=== PATIENT | female | born 1950 | race Caucasian/White ===

== ENCOUNTER 2017-01-09 10:43 | Observation (INO) | payer BC, MEDICARE ==
[2017-01-09] MEDS ORDERED: Ondansetron ODT TAB* 4 MG PO ONE (10:55)
[2017-01-09] MEDS ORDERED: NS 0.9% 1000 ML* 1,000 ML IV ONE (10:55)
[2017-01-09] MEDS ORDERED: Ondansetron INJ* 2 MG/ML VIAL IV ONE (11:03)
[2017-01-09 11:05] LABS: Hematocrit 34 % (35-47); Hemoglobin 11.4 g/dl (12.0-16.0); Mean Corpuscular HGB Conc 34 g/dl (31-36); Mean Corpuscular Hemoglobin 32 pg (27-31); Mean Corpuscular Volume 96 fL (80-97); Mean Platelet Volume 8 um3 (7.4-10.4); Red Blood Count 3.55 10^6/ul (4.0-5.4); Red Cell Distribution Width 14 % (10.5-15); White Blood Count 8.4 10^3/ul (3.5-10.8)
[2017-01-09 11:18] LABS: Potassium 3.5 mmol/L (3.5-5.0)
[2017-01-09 11:53] LABS: TSH (Thyroid Stimulating Horm) 2.17 mcIU/mL (0.34-5.60)
[2017-01-09 12:02] LABS: Albumin 3.6 g/dL (3.2-5.2); BUN/Creatinine Ratio 15.8 (8-20); EGFR African American 75.2 (>60); EGFR Non-African American 58.5 (>60); Total Bilirubin 0.6 mg/dL (0.2-1.0); Total Protein 6.6 g/dL (6.4-8.9)
--- NOTE | 2017-01-09 12:12 | RAD ---
HISTORY: Syncope COMPARISONS: None VIEWS:1: Single frontal portable view of the chest at 11:25 AM FINDINGS: LINES AND TUBES: None. CARDIOMEDIASTINAL SILHOUETTE: The cardiomediastinal silhouette is normal for portable technique. PLEURA: The costophrenic angles are sharp. No pleural abnormalities are noted. LUNG PARENCHYMA: The lungs are clear. ABDOMEN: The upper abdomen is clear. There is no subphrenic gas. BONES AND SOFT TISSUES: There is a scoliotic curvature of the spine IMPRESSION: NO ACTIVE CARDIOPULMONARY DISEASE.
[2017-01-09 13:52] LABS: Urine Bilirubin Negative (Negative); Urine Glucose Negative (Negative); Urine Nitrite Negative (Negative)
[2017-01-09] MEDS ORDERED: Ondansetron INJ* 2 MG/ML VIAL IV PRN (17:09)
--- NOTE | 2017-01-09 17:38 | RAD ---
INDICATION: Syncope COMPARISON: None. TECHNIQUE: Contiguous axial sections of the brain were obtained from the skull base to the vertex without contrast. FINDINGS: The ventricles, cisterns and sulci are within normal limits. The diaz-white matter differentiation is adequately maintained and there is no sulcal effacement. No significant focal abnormality or mass effect is present. There is no evidence for intracranial hemorrhage. No significant focal osseous abnormality is present. The visualized portion of the paranasal sinuses and mastoid air cells appear clear. IMPRESSION: Normal CT of the brain.
--- NOTE | 2017-01-09 18:21 | ED ---
Lory Gary Auryana, scribed for Kei Varela MD on 01/09/17 at 1059 . Syncope/Near Syncope - HPI Summary HPI Summary: 66 year old female presents with near syncopal episode playing pickle ball today. Patient reports nausea, dizziness, and SOB (report only after the episode ). She denies any chest pain, palpitations. Position changes aggravate the pain. She reports that she has had episodes of dizziness over the last few days. PERFUME MAKER 4 mg Zofran. PMHx is significant for HTN (controlled without medications), bilateral knee replacement, and hip surgery- no history of IN or stroke. SHx is not significant for tobacco, alcohol, or any drugs. - History Of Current Complaint Chief Complaint: EDSyncope Time Seen by Provider: 01/09/17 10:46 Hx Obtained From: Patient Onset/Duration: Sudden Onset, Lasting Hours, Still Present Timing: Constant Activity At Onset: Exertion - playing pickle ball Aggravating Factor(s): Position Change Associated Signs And Symptoms: Dizzy, Shortness Of Breath, Other - nausea Related History: Similar Episode/Dx as - yes - episodes over the last few days - Allergies/Home Medications Allergies/Adverse Reactions: Allergies Allergy/AdvReac Type Severity Reaction Status Date / Time Wheat Bran Allergy Edema Verified 01/09/17 10:49 Home Medications: Home Medications NK [No Home Medications Reported] 01/09/17 [History Confirmed 01/09/17] PMH/Surg Hx/FS Hx/Imm Hx Cardiovascular History: Reports: Hx Hypertension - now controlled - Surgical History Surgery Procedure, Year, and Place: hip replacement. bilateral knee surgery Infectious Disease History: No Infectious Disease History: Denies: Traveled Outside the [place] in Last 30 Days - Social History Alcohol Use: None Hx Substance Use: No Substance Use Type: Reports: None Hx Tobacco Use: No Smoking Status (MU): Never Smoked Tobacco Review of Systems Positive: Other - dizziness . Negative: Fever Eyes: Negative ENT: Negative Negative: Palpitations, Chest Pain Positive: Shortness Of Breath Positive: Nausea Genitourinary: Negative Musculoskeletal: Negative Skin: Negative Positive: Syncope - near Psychological: Normal All Other Systems Reviewed And Are Negative: Yes Physical Exam - Summary Physical Exam Summary: VITAL SIGNS: Reviewed. GENERAL: ~Patient is a well-developed and nourished female who is lying comfortable in the stretcher. ~Patient is not in any acute respiratory distress. HEAD AND FACE: No signs of trauma. ~No ecchymosis, hematomas or skull depressions. No sinus tenderness. EYES: PERRLA, EOMI x 2, No injected conjunctiva, no nystagmus. No photophobia. EARS: Hearing grossly intact. Ear canals and tympanic membranes are within normal limits. MOUTH: Oropharynx within normal limits. NECK: Supple, trachea is midline, no adenopathy, no JVD, no carotid bruit, no c- spine tenderness, neck with full ROM. No meningeal signs, no Kernig's or brudzinskis signs. CHEST: Symmetric, no tenderness at palpation LUNGS: Clear to auscultation bilaterally. No wheezing or crackles. CVS: Regular rate and rhythm, S1 and S2 present, no murmurs or gallops appreciated. ABDOMEN: Soft, non-tender. No signs of distention. No rebound no guarding, and no masses palpated. Bowel sounds are normal. EXTREMITIES: FROM in all major joints, no edema, no cyanosis or clubbing. NEURO: Alert and oriented x 3. No acute neurological deficits. Speech is normal and follows commands. SKIN: Dry and warm Triage Information Reviewed: Yes Vital Signs On Initial Exam: Initial Vitals Temp Pulse Resp BP Pulse Ox 97.6 F 61 12 107/72 100 01/09/17 10:44 01/09/17 10:44 01/09/17 10:44 01/09/17 10:44 01/09/17 10:44 Vital Signs Reviewed: Yes Diagnostics - Vital Signs Vital Signs Temp Pulse Resp BP Pulse Ox 01/09/17 10:44 97.6 F 61 12 107/72 100 - Laboratory Lab Results: Lab Results 01/09/17 01/09/17 01/09/17 Range/Units 10:55 10:55 10:55 WBC 8.4 (3.5-10.8) 10^3/ul RBC 3.55 L (4.0-5.4) 10^6/ul Hgb 11.4 L (12.0-16.0) g/dl Hct 34 L (35-47) % MCV 96 (80-97) fL MCH 32 H (27-31) pg MCHC 34 (31-36) g/dl RDW 14 (10.5-15) % Plt Count 514 H (150-450) 10^3/ul MPV 8 (7.4-10.4) um3 Neut % (Auto) 70.6 (38-83) % Lymph % (Auto) 19.7 L (25-47) % Don[place]han % (Auto) 6.8 (1-9) % Eos % (Auto) 1.6 (0-6) % Baso % (Auto) 1.3 (0-2) % Absolute Neuts (auto) 5.9 (1.5-7.7) 10^3/ul Absolute Lymphs (auto) 1.7 (1.0-4.8) 10^3/ul Absolute Monos (auto) 0.6 (0-0.8) 10^3/ul Absolute Eos (auto) 0.1 (0-0.6) 10^3/ul Absolute Basos (auto) 0.1 (0-0.2) 10^3/ul Absolute Nucleated RBC 0 10^3/ul Nucleated RBC % 0 Sodium 134 (133-145) mmol/L Potassium 3.5 (3.5-5.0) mmol/L Chloride 105 (101-111) mmol/L Carbon Dioxide 22 (22-32) mmol/L Anion Gap 7 (2-11) mmol/L BUN 15 (6-24) mg/dL Creatinine 0.95 (0.51-0.95) mg/dL Est GFR ( Amer) 75.2 (>60) Est GFR (Non-Af Amer) 58.5 (>60) BUN/Creatinine Ratio 15.8 (8-20) Glucose 117 H (70-100) mg/dL Lactic Acid 1.8 (0.5-2.0) mmol/L Calcium 9.0 (8.6-10.3) mg/dL Magnesium 2.0 (1.9-2.7) mg/dL Total Bilirubin 0.60 (0.2-1.0) mg/dL AST 21 (13-39) U/L ALT 14 (7-52) U/L Alkaline Phosphatase 78 (34-104) U/L Troponin I 0.00 (<0.04) ng/mL B-Natriuretic Peptide ( - 100) pg/mL Total Protein 6.6 (6.4-8.9) g/dL Albumin 3.6 (3.2-5.2) g/dL Globulin 3.0 (2-4) g/dL Albumin/Globulin Ratio 1.2 (1-3) TSH 2.17 (0.34-5.60) mcIU/mL 01/09/17 Range/Units 10:55 WBC (3.5-10.8) 10^3/ul RBC (4.0-5.4) 10^6/ul Hgb (12.0-16.0) g/dl Hct (35-47) % MCV (80-97) fL MCH (27-31) pg MCHC (31-36) g/dl RDW (10.5-15) % Plt Count (150-450) 10^3/ul MPV (7.4-10.4) um3 Neut % (Auto) (38-83) % Lymph % (Auto) (25-47) % Don[place]han % (Auto) (1-9) % Eos % (Auto) (0-6) % Baso % (Auto) (0-2) % Absolute Neuts (auto) (1.5-7.7) 10^3/ul Absolute Lymphs (auto) (1.0-4.8) 10^3/ul Absolute Monos (auto) (0-0.8) 10^3/ul Absolute Eos (auto) (0-0.6) 10^3/ul Absolute Basos (auto) (0-0.2) 10^3/ul Absolute Nucleated RBC 10^3/ul Nucleated RBC % Sodium (133-145) mmol/L Potassium (3.5-5.0) mmol/L Chloride (101-111) mmol/L Carbon Dioxide (22-32) mmol/L Anion Gap (2-11) mmol/L BUN (6-24) mg/dL Creatinine (0.51-0.95) mg/dL Est GFR ( Amer) (>60) Est GFR (Non-Af Amer) (>60) BUN/Creatinine Ratio (8-20) Glucose (70-100) mg/dL Lactic Acid (0.5-2.0) mmol/L Calcium (8.6-10.3) mg/dL Magnesium (1.9-2.7) mg/dL Total Bilirubin (0.2-1.0) mg/dL AST (13-39) U/L ALT (7-52) U/L Alkaline Phosphatase (34-104) U/L Troponin I (<0.04) ng/mL B-Natriuretic Peptide 61 ( - 100) pg/mL Total Protein (6.4-8.9) g/dL Albumin (3.2-5.2) g/dL Globulin (2-4) g/dL Albumin/Globulin Ratio (1-3) TSH (0.34-5.60) mcIU/mL Result Diagrams: 01/09/17 10:55 01/09/17 10:55 Lab Statement: Any lab studies that have been ordered have been reviewed, and results considered in the medical decision making process. - Radiology CXR Xray Interpretation: No Acute Changes Radiology Interpretation Completed By: Radiologist - EKG 10:58 EKG Interpretation: sinus bradycardia @ 56 BPM with multiple PVCs Course/Dx Assessment/Plan: 66 year old female presents with near syncopal episode playing [employer] ball today. Patient reports nausea, dizziness, and SOB (report only after the episode). She denies any chest pain, palpitations. She reports that she has had episodes of dizziness over the last few days. PERFUME MAKER 4 mg Zofran. PMHx is significant for HTN (none now - controlled without medications), bilateral knee replacement, and hip surgery- no history of IN or stroke. SHx is not significant for tobacco, alcohol, or any drugs. Test results WNL except for slight chronic anemia. Glucose 117, trop 0.00. UA is negative. CXR - NEGATIVE. EKG - sinus bradycardia @ 56 BPM with multiple PVCs. Because of her presentation, I discussed case with Dr. Hennessy, who accepted the patient for admission. Patient is hemodynamically stable and A&O x3. - Diagnoses Differential Diagnosis/HQI/PQRI: Positive: Seizure, Vasovagal Episode, Other - Weakness Provider Diagnoses: Near syncope - Physician Notifications Discussed Care of Patient With: David Hennessy Time Discussed With Above Provider: 12:16 - AGREES TO ADMIT TO [facility] [place] Discharge - Discharge Plan Condition: Stable Disposition: ADMITTED TO [facility] The documentation as recorded by the Lory blair Auryana accurately reflects the service I personally performed and the decisions made by , Kei Varela MD.
[2017-01-09 18:36] LABS: Hematocrit 36 % (35-47); Mean Corpuscular HGB Conc 33 g/dl (31-36); Mean Corpuscular Hemoglobin 32 pg (27-31); Mean Corpuscular Volume 96 fL (80-97); Mean Platelet Volume 8 um3 (7.4-10.4); Red Cell Distribution Width 14 % (10.5-15); White Blood Count 13.1 10^3/ul (3.5-10.8)
[2017-01-09 18:50] LABS: EGFR African American 94.5 (>60); EGFR Non-African American 73.4 (>60)
[2017-01-09] MEDS: Heparin VIAL(*) 5000 UNITS/ML VIAL (FIVE THOUSAND) SUBCUT SCH (20:56)
--- NOTE | 2017-01-09 22:21 | HP ---
HISTORY AND PHYSICAL: DATE OF ADMISSION: 01/09/17 CHIEF COMPLAINT: Dizziness. HISTORY OF PRESENT ILLNESS: The patient is a 66-year-old woman who was playing a game called pickleball today, when about 10 a.m. she started feeling very unstable. Her legs felt wobbly and things started to spin. She had to grab the fence to stand up. She has never had this happen before. She also became nauseated. A camp that was there called 911. The dizziness and nausea has persisted for quite a period of time. She got some medicine for nausea in the ambulance, but does not know what it was. They gave her some supplemental oxygen, which she thinks may have helped but it smelled funny so she took it off. She said the only thing she had was coffee this morning, but she normally has that and does not have an issue. She was playing outdoors where it was quite hot and she was sweating quite a bit. She has noted that she has had a cold recently and she has felt it go into her chest with significant postnasal drip. She took Vicks VapoRub for it. She denies any headache. She denies any visual problems. She has no palpitation. She does state at this time she just does not feel quite right. She only sees a cylinder block hole reliner and a chiropractor and an commercial property administrator. She is on no medications. PAST MEDICAL HISTORY: None. PAST SURGICAL HISTORY: Right hip replacement and right knee and left knee replacement. ALLERGIES: She has no known drug allergies. FAMILY HISTORY: Mother at 90 of Alzheimer's. Father at 48 from CVA. SOCIAL HISTORY: No tobacco, alcohol, or recreational drug use. She is retired. She was in [employer]. She has a significant other, Sachi Winter , who is her healthcare proxy. REVIEW OF SYSTEMS: A 14-point review of systems was completed with the patient. All pertinent positives and negatives are in the history of present illness, otherwise it is negative. PHYSICAL EXAMINATION GENERAL: She is a very pleasant woman, lying in bed, in no acute distress. VITAL SIGNS: Temperature 97.9 degrees, heart rate 63 beats per minute, respiratory rate 14 breaths per minute, pulse ox 90% on room air, blood pressure 138/89. HEENT: Normocephalic and atraumatic. Pupils equal, round, and reactive to light. Moist mucous membranes. NECK: Supple. No JVD, bruits, palpable thyroid or lymphadenopathy. CHEST: Clear to auscultation and percussion bilaterally. CARDIOVASCULAR: S1, S2 appreciated. Regular rate and rhythm. No murmurs, gallops or rubs. ABDOMEN: Positive bowel sounds in all 4 quadrants. Soft, nontender, nondistended. EXTREMITIES: No cyanosis, clubbing, or edema. +2 pulses bilaterally. NEUROLOGIC: Alert and oriented x3. Moves all extremities. SKIN: No rashes or abnormalities. LABORATORY DATA/DIAGNOSTIC STUDIES: White count 8.4, hemoglobin 11.4, hematocrit 34, platelets 514. Sodium 134, potassium 3.5, chloride 105, CO2 22, BUN 15, creatinine 0.95, glucose 117. Urinalysis is unremarkable. Chest x-ray was interpreted by Radiology as no active cardiopulmonary disease. EKG is pending. ASSESSMENT AND PLAN: 1. Presyncope. Admit the patient to CDU. We will cycle her troponins. CAT scan of the head was ordered. Order a transthoracic echocardiogram. I think the most likely cause of this was she was somewhat dehydrated on a hot day and it caused these symptoms. However, we will monitor overnight. If everything is normal, she can likely be discharged tomorrow and follow up with her PCP. 2. FEN. Regular diet. 3. DVT prophylaxis. Heparin. 4. The patient is a full code. TIME SPENT: Over 75 minutes were spent on this H and P, more than 40 minutes of which were spent in direct [id number] contact with the patient in evaluation, physical exam, counseling, and coordination of care. [id number]/[facility] #: [id number] MTDD
[2017-01-10] MEDS: Heparin VIAL(*) 5000 UNITS/ML VIAL (FIVE THOUSAND) SUBCUT SCH (05:08)
[2017-01-10 08:11] VITALS: BP 115/63
--- NOTE | 2017-01-10 08:17 | ECHO ---
Patient: CAROL DEL VALLE Rec#: [id number] : 1950 Date: 01/09/2017 Age: 66y Height: 154.9 cm / 61.0 in Weight: 63.5 kg / 140.0 lbs Sex: F BSA: 1.6 Room#: 452 Admit Date#: 01/09/2017 Type: Inpatient Referring: David Hennessy MD Reading: Jonathan Milton MD Lard Renderer: Patricia Santana RN RDCS Transthoracic Echocardiogram Indication: Near syncope, PVCs BP: 138/74 HR: 61 Rhythm: NSR with PVCs Findings History: Episode of nausea and dizziness Technical Comments: The study quality is fair. Completed at 1645. Left Ventricle: The left ventricular chamber size is normal. Septal wall hypertrophy is observed. There is increased basal septal hypertrophy noted without evidence of an increased gradient across the left ventricular outflow tract. Global left ventricular wall motion and contractility are within normal limits. Left ventricular systolic function is at the lower limits of normal. The estimated ejection fraction is 50-55%. There is no consistent Doppler evidence of clinically significant diastolic dysfunction. Left Atrium: The left atrial chamber size is normal. Right Ventricle: The right ventricular cavity size is normal. The right ventricular global systolic function is low normal. Right Atrium: The right atrial cavity size is normal. There is evidence of an atrial septal aneurysm. Aortic Valve: The aortic valve is trileaflet. The aortic valve leaflets are mildly thickened. There is a trace of aortic regurgitation. There is no evidence of aortic stenosis. Mitral Valve: The mitral valve leaflets are mildly thickened. There is mild mitral regurgitation. There is no evidence of mitral stenosis. Tricuspid Valve: The tricuspid valve leaflets are normal. There is mild tricuspid regurgitation. There is evidence of borderline pulmonary hypertension. There is no tricuspid stenosis. Pulmonic Valve: The pulmonic valve appears normal. There is trace to mild pulmonic regurgitation. There is no pulmonic stenosis. Pericardium: There is no significant pericardial effusion. A pericardial fat pad is visualized. Aorta: There is mild dilatation of the ascending aorta. There is no dilatation of the aortic arch. There is no dilation of the aortic root. Pulmonary Artery: The main pulmonary artery appears normal. Venous: The inferior vena cava appears normal in size. There is an approximate 50% respiratory change in the inferior vena cava dimension. Conclusions Global left ventricular wall motion and contractility are within normal limits. There is increased basal septal hypertrophy noted without evidence of an increased gradient across the left ventricular outflow tract. The estimated ejection fraction is 50-55%. The right ventricular global systolic function is low normal. There is evidence of an atrial septal aneurysm. There is a trace of aortic regurgitation. There is mild mitral regurgitation. There is mild tricuspid regurgitation. There is evidence of borderline pulmonary hypertension. There is no significant pericardial effusion. Measurements Name Value Normal Range RVDdMajor (2D) 3.8 cm (2.2 - 4.4) RAd ISD 4CH 4.4 cm (3.4 - 4.9) RA (A4C)W 4.5 cm (2.9 - 4.6) IVSd (2D) 1.2 cm (0.6 - 1) LVPWd (2D) 0.9 cm (0.6 - 1) LVIDd (2D) 4.2 cm (3.6 - 5.4) LVIDs (2D) 2.7 cm - LV FS (2D) 36 % (25 - 45) Aortic Annulus 1.8 cm (1.4 - 2.6) Ao root diameter (2D) 2.9 cm (2.1 - 3.5) Ascending Ao 3.5 cm (2.1 - 3.4) Aortic arch 2.4 cm (1.8 - 3.4) LA dimension (AP) 2D 3.9 cm (2.3 - 3.8) LAd ISD 4CH 4.4 cm (2.9 - 5.3) LA ISD 4CH W 4.1 cm (2.5 - 4.5) Name Value Normal Range LA ESV SP 4CH (A/L) 47 ml - LA ESV SP 2CH (A/L) 39 ml - LA ESV BP (A/L) 43 ml - LA ESV BP (A/L) index 26.6 ml/m2 - LA ESV SP 4CH (MOD) 45 ml - LA ESV SP 2CH (MOD) 38 ml - Name Value Normal Range MV E-wave Vmax 0.8 m/sec - MV deceleration time 212 msec - MV A-wave Vmax 0.9 m/sec - MV E:A ratio 0.9 ratio - LV septal e' Vmax 0.12 m/sec - LV lateral e' Vmax 0.1 m/sec - LV E:e' septal ratio 6.7 ratio - LV E:e' lateral ratio 8 ratio - Name Value Normal Range AV Vmax 1.5 m/sec - AV VTI 42.3 cm - AV peak gradient 9 mmHg - AV mean gradient 6 mmHg - LVOT Vmax 1.2 m/sec - LVOT VTI 27.5 cm - LVOT peak gradient 5.7 mmHg - LVOT mean gradient 2.9 mmHg - PILAR Vmax 0.61 m/sec - Name Value Normal Range TR Vmax 2.6 m/sec - TR peak gradient 27 mmHg - RAP 8 mmHg - RVSP 35 mmHg - IVC diameter 2.1 cm - Name Value Normal Range PV Vmax 0.81 m/sec -
--- NOTE | 2017-01-11 12:53 | DS ---
DISCHARGE SUMMARY: DATE OF ADMISSION: 01/09/17 DATE OF DISCHARGE: 01/10/17 ADMISSION DIAGNOSIS: Near syncope. DISCHARGE DIAGNOSIS: Near syncope. HOSPITAL COURSE: The patient is a 66-year-old woman who came in to [facility] complaining of almost passing out while playing a sport the day prior. Please see H and P for further details. The patient was admitted, ruled out for an NV with serial troponins. The patient had transthoracic echocardiogram, overall which was unimpressive and a CAT scan of her head, which was unremarkable. She was also monitored on telemetry with no events overnight. The day after, she was feeling much better. It could have just been dehydration and only having a coffee prior to playing a game in the hot sun. The patient was comfortable being discharged home and following up with her PCP. PHYSICAL EXAMINATION ON THE DATE OF DISCHARGE: Heart rate 72 beats per minute, temperature 98.4 degrees, respiratory rate 16 breaths per minute, pulse ox 99%, blood pressure 115/63. HEENT: Normocephalic, atraumatic. Pupils are equal, round, and reactive to light. Moist mucous membranes. Neck: Supple. No JVD, bruits, palpable thyroid, or lymphadenopathy. Chest is clear to auscultation and percussion bilaterally. Cardiovascular Exam: S1, S2 appreciated. Regular rate and rhythm. Abdominal Exam: Positive bowel sounds in all 4 quadrants, soft , nontender, nondistended. No hepatosplenomegaly. Extremities: No cyanosis, clubbing, or edema. +2 peripheral pulses bilaterally. Neuro: Alert and oriented x3. Moves all extremities. Skin: No rash or abnormalities. STUDIES DONE WHILE IN THE HOSPITAL: Chest x-ray 01/09/17 shows no active cardiopulmonary disease. Brain CT 01/09/[address] of the brain. Transthoracic echocardiogram shows global left ventricular wall motion and contractility within normal limits, increased basal septal hypertrophy noted without evidence of an increased gradient across the left ventricular outflow tract, the estimated ejection fraction is 50% to 55%, right ventricular global systolic function is low normal. There was evidence of atrial septal aneurysm and there was trace aortic regurg, mild mitral regurg, mild tricuspid regurg, evidence of borderline pulmonary hypertension, no significant pericardial effusion. DISCHARGE MEDICATIONS: None. DISCHARGE PLAN: The patient will be discharged home. She will follow up with her PCP which she will get soon and told to see one in 1 to 2 weeks. Patient should return to the ED if symptoms recur. She does have some slight pulmonary hypertension and this should be followed up with her primary care physician once she has made her decision. I think it is highly unlikely this is however related to her near syncopal episode. TIME SPENT: Over 40 minutes was spent on this discharge, more than 25 minutes of which was spent in direct [id number] contact with the patient in evaluation , physical exam, and counselling and coordination of care. [id number]/[facility] #: [id number] SHANNON
== END 2017-01-10 13:00 | disposition home or self-care (01) ==
LOC: EDBD → ED 10:43 → MEDTELE 12:31
PROVIDERS: ADMIT Internal Medicine; ATTEND Internal Medicine
DX: R55 Syncope and collapse (principal); Y93.79 Activity, other specified sports and athletics; R11.0 Nausea; R42 Dizziness and giddiness; R06.02 Shortness of breath; I10 Essential (primary) hypertension
CPT/HCPCS: 36415; 70450; 71010; 80053; 81003; 82565; 83605; 83735; 83880; 84443; 84484; 84520; 85025; 85610; 85730; 93306; 96374; 96375; 99283; G0378; J1644; J2405